=== PATIENT | female | born 1985 | race Caucasian/White ===

== ENCOUNTER 2016-10-26 12:14 | Emergency (ER) | payer OTHER, BC ==
[~2016-10-26] VITALS: Ht 149.9 cm; Wt 115.9 kg
[~2016-10-26 12:14] MED LIST: ATV1 PO; NPR500 PO; NUVVR VAGRING; SERT50TA PO; SPIR25TA PO
[2016-10-26 12:20] VITALS: TEMP 36.6; Ht 149.9 cm; Wt 115.9 kg
[2016-10-26] MEDS ORDERED: LETR2TAB PO (12:32)
--- NOTE | 2016-10-26 13:29 | EMERGENCY ROOM VISIT NOTE ---
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 The bleeding has stopped. Denies weakness or numbness of the finger. The patient has full range of motion of the fingers. The patient denies any pain. The patient denies any other injuries. The patient' s tetanus shot is not up to date. REVIEW OF SYSTEMS: A 6 system review of systems was completed with positives and pertinent negatives listed in the HPI. ALLERGIES: escitalopram MEDICATIONS: none PMH: Depression SOCIAL HISTORY: The patient is employed PHYSICAL EXAM: Vital Signs: Reviewed Nurse's notes, vital signs stable. GENERAL : As a 31-year-old female, in no acute distress, well developed, well nourished. SKIN: There is a 2 cm long laceration on the lateral aspect of the right second finger. The edges gape apart with traction. There is no foreign material in the wound and it looks clean. There is no bleeding. No deep structures such as tendons, bones, or nerves are seen in the base of the wound. Extension and flexion of the finger is full and strong. Full range of motion of the wrist and other fingers. Capillary refill less than 2 seconds. Normal sensation to light and sharp touch. EMERGENCY DEPARTMENT COURSE: I examined the patient. Using sterile technique the wound was cleaned with Betadine. 3 ml of 1% buffered lidocaine was used to infiltrate the wound to anesthetize the patient. The area was sterilely draped. Once the patient was numb, the wound was copiously irrigated under pressure with sterile saline. The wound was explored and there were no deep structures such as tendons, bone, or ligaments present. The laceration was repaired using 3 simple interrupted 5-0 proline sutures. The patient tolerated the procedure well. The bleeding stopped. The area was cleaned with sterile saline and dressed with bacitracin ointment and bandage. The patient was given a tetanus booster. The patient was discharged home in good condition. She was placed in a metal splint at her request and I feel this is reasonable given the location of the wound. It does seem to be quite superficial. Current/Historical Medications Scheduled Letrozole (Femara), 7.5-10 MG PO UD Allergies Coded Allergies: Escitalopram (Verified Adverse Reaction, Severe, SUICIDAL THOUGHTS/ ATTEMPTS, 02/13/12) No Known Allergies (Verified , 09/06/07) Vital Signs Date Time Temp Pulse Resp B/P (MAP) Pulse Ox O2 Delivery O2 Flow Rate FiO2 10/26/16 14:41 76 20 140/80 98 10/26/16 12:20 36.6 108 18 159/101 97 Room Air Medications Administered Medications (Trade) Dose Ordered Sig/Michelle Route Start Time Stop Time Status Last Admin Dose Admin Diphtheria/ Pertussis/Tetanus Vacc (Adacel Inj) 0.5 ml ONCE ONCE IM. 10/26/16 13:30 10/26/16 13:31 DC 10/26/16 14:25 0.5 ML Ibuprofen (Motrin Tab) 600 mg NOW STAT PO 10/26/16 14:25 10/26/16 14:26 DC 10/26/16 14:32 600 MG Departure Information Impression Primary Impression: Laceration Dispostion Home / Self-Care Condition GOOD Referrals No Doctor, Assigned (PCP) Patient Instructions ED Laceration All, [facility] Additional Instructions Keep wound clean and dry. Do not allow any crusting or dried blood to accumulate on sutures. If this occurs, use a 1:1 solution of hydrogen peroxide/ water on a Q-tip to clean the wound. Use an antibiotic ointment for 3-4 days, then let wound dry. Suture removal in 10-12 days. Return sooner for any signs of infection (increasing redness, swelling, drainage). Ice and elevate for swelling and pain. Ibuprofen 600 mg every 6 hrs for pain. Keep covered when in sun until sutures removed then SPF 50 or higher for one year. Vitamin E oil if desired two weeks after suture removal for reduction of scar. Wear the splint when up and about to reduce movement and aid in healing
[2016-10-26] MEDS ORDERED: DIPHTHERIA/TETANUS/PERTUSSIS 0.5 ML SYR/VIAL IM. ONE (13:30)
[2016-10-26] MEDS ORDERED: XYLOCAINE 1%/SOD BICARB 20 ML VIAL INFIL ONE (13:30)
[2016-10-26] MEDS ORDERED: IBUPROFEN 600 MG TAB PO STA (14:25)
[2016-10-26 14:41] VITALS: BP 140/80; PULSE 76; O2SAT 98
== END 2016-10-26 14:43 | disposition home or self-care (01) ==
LOC: C.EDB 12:15 → C.EDD 14:43
DX: S61.210A Laceration without foreign body of right index finger without damage to nail, initial encounter (principal); F32.9 Major depressive disorder, single episode, unspecified; Z23 Encounter for immunization; Z79.899 Other long term (current) drug therapy; Y99.0 Civilian activity done for income or pay; Y92.89 Other specified places as the place of occurrence of the external cause; W27.5XXA Contact with paper-cutter, initial encounter

== ENCOUNTER 2018-11-05 05:55 | Observation (INO) ==
[2018-10-22 14:32] LABS: Basophils # (auto) 0.02 K/uL (0-0.2); Basophils % (auto) 0.2 %; Eosinophils # (auto) 0.11 K/uL (0-0.5); Eosinophils % (auto) 1.3 %; Hematocrit (blood only) 37.2 % (37-47); Hemoglobin 12.5 g/dL (12.0-16.0); Immature Granulocytes # (auto) 0.01 K/uL (0.00-0.02); Immature Granulocytes % (auto) 0.1 %; Lymphocytes # (auto) 2.15 K/uL (1.2-3.4); Lymphocytes % (auto) 24.6 %; Mean Corpuscular Hgb Conc 33.6 g/dL (32-36); Mean Corpuscular Volume 84.7 fL (80-100); Mean Platelet Volume 12.1 fL (7.4-10.4); Monocytes # (auto) 0.49 K/uL (0.11-0.59); Monocytes % (auto) 5.6 %; Neutrophils # (auto) 5.96 K/uL (1.4-6.5); Neutrophils % (auto) 68.2 %; Platelet Count 224 K/uL (130-400); RDW Standard Deviation 39.5 fL (36.4-46.3); Red Blood Count 4.39 M/uL (4.2-5.4); White Blood Count 8.74 K/uL (4.8-10.8)
[2018-10-22 14:40] LABS: Pregnancy Test, Urine Negative (Negative)
--- NOTE | 2018-10-25 11:20 | Anesthesiology Consultation ---
Date of Service October 25, 2018 Assessment & Plan (1) Encounter for pre-operative examination: BMI >40: no BMP/EKG done with preop testing. Will attempt to have patient do prior to surgery. If unable to do so, will order for AM DOS. Chart Review Chart Review: Patient NOT seen in Pre Admission Testing History Surgery Operation Date: 11/05/18 10:20 Proposed Procedures p C5-C6 Cervical Disc Arthroplasty - Maycol Cespedes DO Height/Weight Height: 4 ft 11 in Weight: 102.058 kg Allergies Allergy/AdvReac Type Severity Reaction Status Date / Time escitalopram AdvReac Severe SUICIDAL Verified 10/22/18 10:06 THOUGHTS/ATTEMPTS Medications Home Medications Medication Instructions Recorded Confirmed Last Taken hydrocodone-acetaminophen [Vicodin] 1 tab PO Q6H PRN 09/19/18 10/22/18 10/21/18 omeprazole 20 mg PO DAILY PRN 09/19/18 10/22/18 Unknown oxybutynin chloride 10 mg PO QAM 09/19/18 10/22/18 Unknown phentermine 37.5 mg PO QAM 09/19/18 10/22/18 Unknown Past Medical History Medical History Acid reflux History of anxiety History of depression History of kidney stones IBS (irritable bowel syndrome) Migraine Morbid obesity Overactive bladder PCOS (polycystic ovarian syndrome) Spinal stenosis Past Family History Family History Grandfather (Maternal) Family history of diabetes mellitus Grandmother (Paternal) Family history of diabetes mellitus Past Surgical History Surgical History History of section History of cone biopsy of cervix History of cryosurgery History of lithotripsy History of tonsillectomy History of wisdom tooth extraction Nausea and vomiting after administration of anesthetic agent Status post myringotomy with insertion of tube STOP BANG Total 1 Social History Smoking Status: Never smoker Do You Dip or Chew Tobacco: No Smoking End Date: quit 2015 Hx Alcohol Use: Yes alcohol intake frequency: holidays/special occasions only Hx Substance Use: No substance use type: does not use Testing Laboratory Results 10/22/18 12:55 Urine Test Negative (Negative) 10/22/18 13:02 10/22/18 13:02 Urine Test Negative
[2018-10-31 16:14] LABS: BUN Creatinine Ratio 23.1 (10-20); Calcium 8.9 mg/dl (8.5-10.1); Creatinine Clr Calc Pharmacy 145.4 ml/min; Est GFR (African American) 140.4; Est GFR (Non-African American) 121.1; Potassium 3.6 mmol/L (3.5-5.1)
--- NOTE | 2018-11-02 15:05 | History and Physical Report ---
DATE OF ADMISSION: 11/05/2018 HISTORY OF PRESENT ILLNESS: She is being preoped for cervical disk arthroplasty, C5-C6 cervical spine. She has had ongoing difficulty with her cervical spine and upper extremities for greater than 1 year, failing conservative measures. She has tried everything that I can think of conservative care. She has numbness, headaches, constant pain. PAST MEDICAL HISTORY: Positive for anxiety, depression, obesity, chickenpox. PAST SURGICAL HISTORY: , cone biopsy, kidney stone, tonsillectomy, urethral stone. ALLERGIES: LEXAPRO. FAMILY HISTORY: Diabetes. SOCIAL HISTORY: She is . No alcohol or tobacco. 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 REVIEW OF SYSTEMS: She admits to cervical headaches. Ear, nose and throat negative. No chest pain, palpitations. Admits to occasional nausea. She has no lightheadedness, dizziness, numbness, tingling and musculoskeletal neck pain. MEDICATIONS: Negative. PHYSICAL EXAMINATION: GENERAL: She is 4 feet 11 inches. She is 139. She is in moderate distress. VITAL SIGNS: Blood pressure 130/80, pulse 80, respiration 16. HEENT: Pupils react to light and accommodation. Ear, nose and throat clear. CARDIAC: Normal S1, S2. No S3. MUSCULOSKELETAL: She has musculoskeletal pain with flexion and extension. 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 Images reviewed demonstrating cervical herniation C5-C6. PLAN: On Monday includes a cervical disk arthroplasty C5-C6 of the cervical spine.
[2018-11-05] MEDS ORDERED: LR 15ML/HR IV SCH (06:00)
[2018-11-05] MEDS ORDERED: CEFAZOLIN 2000MG 2,000 MG/15 ML SYR IV SCH (06:00)
[2018-11-05] MEDS ORDERED: SODIUM CHLORIDE 0.9% 1,000 ML IV SCH (06:00)
[2018-11-05] MEDS ORDERED: NEOSTIGMINE METHYLSULFATE 5 MG/5 ML SYR ONE (06:46)
[2018-11-05] MEDS ORDERED: GLYCOPYRROLATE 0.2 MG/ML VIAL ONE (06:46)
[2018-11-05] MEDS ORDERED: MIDAZOLAM HCL 1 MG/ML 2ML VIAL ONE (06:46)
[2018-11-05] MEDS ORDERED: ONDANSETRON INJ 2 MG/ML 2 ML VIAL ONE ×2 (06:46→08:52)
[2018-11-05] MEDS ORDERED: PROPOFOL IV EMULSION 10 MG/ML 20 ML VIAL IV ONE (06:46)
[2018-11-05] MEDS ORDERED: fentaNYL citrate 100 MCG/2 ML VIAL ONE ×2 (06:46→08:37)
[2018-11-05] MEDS ORDERED: DEXAMETHASONE SOD INJ 4 MG/ML VIAL ONE (06:46)
[2018-11-05] MEDS ORDERED: LIDOCAINE HCL 2% 2 ML VIAL/AMP(20MG/ML) INFIL ONE (06:46)
[2018-11-05] MEDS ORDERED: BUPIVACAINE/EPINEPHRINE 0.5% MPF 1:200,000 30 ML VIAL ONE (07:00)
[2018-11-05] MEDS ORDERED: GELATIN SPONGE SZ 100 ONE (07:00)
[2018-11-05] MEDS ORDERED: THROMBIN FOR SOLN 20000 UNIT KIT ONE (07:01)
[2018-11-05] MEDS ORDERED: BACITRACIN INJ 50,000 UNIT VIAL ONE (07:01)
[2018-11-05] MEDS ORDERED: ATROPINE SULFATE 0.1 MG/ML 10ML SYR IV PRN (07:12)
[2018-11-05] MEDS ORDERED: HYDROmorphone INJ 2 MG/ML SYR/VIAL IV PRN (07:12)
[2018-11-05] MEDS ORDERED: PROMETHAZINE HCL 6.25 MG in SODIUM CHLORIDE 0.9% 50 ML IV PRN (07:12)
[2018-11-05] MEDS ORDERED: ePHEDrine sulfate 50 MG/ML AMP IV PRN (07:12)
[2018-11-05] MEDS ORDERED: ONDANSETRON INJ 2 MG/ML 2 ML VIAL IV PRN (07:12)
--- NOTE | 2018-11-05 07:19 | History & Physical Bridge Note ---
Date of Service November 05, 2018 History & Physical Bridge Note I have examined the patient, reviewed the History & Physical and in the interval since the performance of the History & Physical I have noted the following changes of clinical significance: no changes noted
[2018-11-05] MEDS ORDERED: ROCURONIUM BROMIDE 10 MG/ML 5 ML VIAL ONE (08:52)
[2018-11-05] MEDS ORDERED: LARYING-O-JET KIT (LTA) ONE (08:53)
--- NOTE | 2018-11-05 09:06 | Post Operative Brief Note ---
PG Immediate Post Op with CF Date of Surgery November 05, 2018 Pre & Post Diagnosis Operation Date: 11/05/18 07:30 Pre-Op Diagnosis: Cervical Disk Displacement Post-Op Diagnosis: Cervical Disk Displacement Procedure Operation Date: 11/05/18 07:30 Actual Procedures p C5-C6 Cervical Disc Arthroplasty(Not Applicable) - Maycol Cespedes DO Surgeon Maycol Cespedes DO Developer [employer] jorge Estimated Blood Loss 3 Findings Consistent with Post-Op Diagnosis Specimens Specimen Description: none per surgeon Drains Bobby Drain Disposition Accompanied Patient To Recovery: Yes Overlapping Procedure I was immediately available: during the entire case.
--- NOTE | 2018-11-05 09:23 | Operative Report ---
DATE OF OPERATION: 11/05/2018 PREOPERATIVE DIAGNOSIS: Cord compression, cervical spine, C5-C6. POSTOPERATIVE DIAGNOSIS: Cord compression, cervical spine, C5-C6. PROCEDURE: Included cervical disc arthroplasty, C5-C6 cervical spine. SURGEON: Maycol Cespedes DO. TRANSITION OF CARE SPECIALIST: Marcel Lozoya PA-C. DESCRIPTION OF PROCEDURE: The patient was identified in the preop holding area, marked, bridge note provided. The patient was successfully taken back to the operating room, a general intubated anesthetic provided to the patient, kept supine, scrubbed, prepped and draped sterile. We premarked her with the imaging. We did a transverse skin incision over C5-C6 area of the cervical spine. We came down closer to C6-C7, moved up one interspace at C5-C6 interval. This was verified in the operating room. We then did a formal discectomy at C5-C6 of the cervical spine, taken out all conceivable disc material. I was back and through the posterior longitudinal ligament. I was lateral to the uncovertebral joints. I evacuated every piece of disc material possible. I then curetted the upper surface of C6 and undersurface of C5 getting off all the hyaline cartilage. We then went through a series of trials with the cervical disc arthroplasty from [facility]. We settled on a size 8 implant with 13 x 15, 6 mm in height. The position was anatomic in AP and lateral radiographs. We began our closure in interrupted fashion over a drain. Sterile dressings were applied. The patient returned to PACU in improved, stable condition. There were no apparent complications. ESTIMATED BLOOD LOSS: Less than 5 mL. COUNTS: Sponge and needle count correct at the close of the procedure. I attest to the content of the Intraoperative Record and any orders documented therein. Any exception s are noted below.
[2018-11-05] MEDS: fentaNYL citrate 100 MCG/2 ML VIAL IV PRN ×2 (09:44→09:58)
--- NOTE | 2018-11-05 09:55 | Fluoroscopy Report ---
FL cervical 2-3V CLINICAL HISTORY: C5-6 ARTHROPLASTY COMPARISON STUDY: MRI dated 08/28/2018 FLUOROSCOPY TIME: 27 seconds. NUMBER OF FLUOROSCOPIC IMAGES: 4 FINDINGS: 4 fluoroscopic spot images were acquired during the performance of a C5-6 arthroplasty. IMPRESSION: Intraoperative radiographs demonstrating a C5-6 arthroplasty Electronically signed by: Francisco Dodge M.D. 11/05/2018 9:53 AM
--- NOTE | 2018-11-05 10:52 | Anesthesiology Progress Note ---
Date of Service November 05, 2018 Anesthesia Post Procedure Vital Signs Vital Signs: Temp Pulse Pulse Resp BP Pulse Ox 11/05/18 10:30 36.2 C L 69 15 117/74 100 11/05/18 10:20 78 17 125/93 100 11/05/18 10:10 73 14 128/71 99 11/05/18 10:00 71 19 137/85 96 11/05/18 09:50 71 15 131/91 96 11/05/18 09:40 76 13 129/71 96 11/05/18 09:30 74 15 159/105 H 97 11/05/18 09:20 81 12 164/90 H 100 11/05/18 09:12 36.9 C 80 15 163/95 H 100 11/05/18 06:17 36.9 C 73 18 144/97 H 95 Pain Intensity Neck: Pain Intensity: 3 Transfer of Care Handoff Completed per policy Notes Mental Status: alert / awake / arousable Patient Amnestic to Procedure: Yes Nausea / Vomiting: adequately controlled Pain: adequately controlled Airway Patency, RR, SpO2: stable & adequate BP & HR: stable & adequate Hydration State: stable & adequate Anesthetic Complications: no major complications apparent
[2018-11-05] MEDS ORDERED: MAGNESIUM HYDROXIDE SUSP 30 ML UDC PO PRN (11:07)
[2018-11-05] MEDS ORDERED: ACETAMINOPHEN 1,000 MG/100 ML VIAL IV PRN (11:07)
[2018-11-05] MEDS ORDERED: DEXAMETHASONE SOD PHOSPHATE 8 MG in SYRINGE 0 ML IV PRN (11:07)
[2018-11-05] MEDS ORDERED: RACEPINEPHRINE 2.25% NEBU SOLN 0.5 ML VIAL INH PRN (11:07)
[2018-11-05] MEDS ORDERED: NALOXONE HCL 0.4 MG/1 ML VIAL/CARP IV PRN (11:07)
[2018-11-05] MEDS ORDERED: LORazepam 0.5 MG/1 ML VIAL IV PRN (11:07)
[2018-11-05] MEDS ORDERED: PANTOprazole 40 MG TAB PO PRN (11:07)
[2018-11-05] MEDS ORDERED: HYDROmorphone INJ 0.5 MG/0.5 ML SYR ONE (11:42)
[2018-11-05] MEDS: SODIUM CHLORIDE 0.9% 1000ML 1,000 ML IV SCH ×2 (11:45→23:48)
[2018-11-05] MEDS: OXYCODONE HCL IR 5 MG TAB (IMMEDIATE RELEASE) PO PRN ×2 (14:09→19:43)
[2018-11-05] MEDS: CEFAZOLIN 2000MG 2,000 MG/15 ML SYR IV SCH ×2 (16:14→23:48)
[2018-11-05] MEDS: HYDROmorphone INJ 0.5 MG/0.5 ML SYR IV PRN ×2 (16:14→22:24)
[2018-11-05] MEDS: ONDANSETRON INJ 2 MG/ML 2 ML VIAL IV PRN ×2 (16:57→23:48)
[2018-11-05] MEDS: DOCUSATE SODIUM 100 MG CAP PO SCH (21:50)
[2018-11-06] MEDS: OXYCODONE HCL IR 5 MG TAB (IMMEDIATE RELEASE) PO PRN ×2 (02:42→10:51)
[2018-11-06] MEDS: ONDANSETRON INJ 2 MG/ML 2 ML VIAL IV PRN (07:10)
[2018-11-06] MEDS: HYDROmorphone INJ 0.5 MG/0.5 ML SYR IV PRN (07:10)
[2018-11-06] MEDS: CEFAZOLIN 2000MG 2,000 MG/15 ML SYR IV SCH (07:50)
--- NOTE | 2018-11-06 08:14 | Anesthesiology Progress Note ---
Date of Service November 06, 2018 Anesthesia Post Procedure Vital Signs Vital Signs: Temp Pulse Pulse Pulse Resp BP Pulse Ox 11/06/18 07:21 75 16 97 11/06/18 06:59 36.8 C 86 16 116/82 97 11/06/18 06:05 36.8 C 87 18 152/93 H 99 11/06/18 03:58 36.8 C 86 18 124/79 98 11/06/18 03:05 83 16 98 11/06/18 02:04 36.8 C 92 H 20 118/73 99 11/06/18 00:00 36.8 C 89 16 125/82 97 11/05/18 23:05 64 16 96 11/05/18 21:54 36.8 C 83 16 138/86 97 11/05/18 19:48 36.7 C 99 H 15 139/84 99 11/05/18 19:47 105 H 16 98 11/05/18 18:00 36.8 C 101 H 16 131/82 96 11/05/18 16:07 37.0 C 91 H 16 160/95 H 95 11/05/18 15:20 93 H 16 99 11/05/18 13:57 36.8 C 91 H 16 123/79 99 11/05/18 12:57 90 16 122/77 99 11/05/18 11:54 36.7 C 92 H 18 119/79 99 11/05/18 11:33 88 18 100 11/05/18 11:24 36.8 C 92 H 18 121/78 99 11/05/18 10:55 37.0 C 94 H 18 150/86 H 100 11/05/18 10:30 36.2 C L 69 15 117/74 100 11/05/18 10:20 78 17 125/93 100 11/05/18 10:10 73 14 128/71 99 11/05/18 10:00 71 19 137/85 96 11/05/18 09:50 71 15 131/91 96 11/05/18 09:40 76 13 129/71 96 11/05/18 09:30 74 15 159/105 H 97 11/05/18 09:20 81 12 164/90 H 100 11/05/18 09:12 36.9 C 80 15 163/95 H 100 Pain Intensity Neck: Pain Intensity: 7 Notes Mental Status: alert / awake / arousable and participated in evaluation Patient Amnestic to Procedure: Yes Nausea / Vomiting: adequately controlled Pain: adequately controlled Airway Patency, RR, SpO2: stable & adequate BP & HR: stable & adequate Hydration State: stable & adequate Anesthetic Complications: no major complications apparent and Pt Satisfied with anesthetic care
[2018-11-06] MEDS: DOCUSATE SODIUM 100 MG CAP PO SCH (08:24)
[2018-11-06] MEDS ORDERED: OXYBUTYNIN CHLORIDE XL 5 MG TABCR PO SCH (09:00)
--- NOTE | 2018-11-06 13:54 | Discharge Summary ---
HOSPITAL COURSE: Arabella is 1 day from arthroplasty, cervical spine, doing well. Better motion, decreased pain. She does have some cervical neck pain. She has no shortness of breath, difficulty swallowing. No fevers, sweats, chills. She has had an uneventful 1 day course for an arthroplasty, cervical spine. ASSESSMENT: Status post arthroplasty, cervical spine. PLAN: Includes instructions, precautions, education here today. Dressing changed. Discharged home. She has instructions from home. She has instructions here in the hospital. She has a cervical collar, [place] for pain and medication for nausea.
[2018-11-07] MEDS ORDERED: BISACODYL 5 MG TABEC PO PRN (09:16)
== END 2018-11-06 13:13 | disposition home or self-care (01) ==
LOC: ASU 05:55 → 3E 05:55